=== PATIENT | female | born 1980 | race Asian ===

== ENCOUNTER 2019-01-31 18:16 | Emergency (ER) | payer OTHER ==
[~2019-01-31] VITALS: Ht 154.9 cm; Wt 61.2 kg
[2019-01-31 19:06] VITALS: Ht 154.9 cm; Wt 61.2 kg
[2019-01-31 21:03] VITALS: BP 117/63
== END 2019-01-31 21:03 | disposition home or self-care (01) ==
LOC: ED 18:16
DX: S81.812A Laceration without foreign body, left lower leg, initial encounter (principal); Z98.890 Other specified postprocedural states; W11.XXXA Fall on and from ladder, initial encounter; Y93.89 Activity, other specified; Y92.89 Other specified places as the place of occurrence of the external cause; Y99.8 Other external cause status
CPT/HCPCS: 90715; J2001

== ENCOUNTER 2019-10-04 14:53 | Emergency (ER) | payer OTHER ==
[~2019-10-04] VITALS: Ht 154.9 cm; Wt 61.7 kg
[2019-10-04 15:00] VITALS: Ht 154.9 cm; Wt 61.7 kg
[2019-10-04 15:28] LABS: BASOPHIL % 0.4 % (0-2); PLATELET COUNT 331 x10^3mcL (130-400); RED CELL DISTRIBUTION WIDTH 13.5 % (11.5-14.5)
[2019-10-04 15:36] LABS: CALCIUM 8.6 mg/dL (8.5-10.1); CARBON DIOXIDE 29.1 mmol/L (21-32); CHLORIDE SERUM 105 mmol/L (98-107); CREATININE SERUM 0.8 mg/dL (0.6-1.0); GFR1 > 60 mL/min; GLUCOSE SERUM 116 mg/dL (74-106); POTASSIUM SERUM 3.5 mmol/L (3.5-5.1); SODIUM SERUM 143 mmol/L (136-145)
[2019-10-04 15:41] LABS: ALBUMIN 3.8 g/dL (3.4-5.0); ALKALINE PHOSPHATASE 48 U/L (46-116); ALT/SGPT 16 U/L (14-59); AST/SGOT 10 U/L (15-37); BILIRUBIN TOTAL 0.3 mg/dL (0.20-1.00); TOTAL PROTEIN, SERUM 7.3 g/dL (6.4-8.2)
[2019-10-04 16:44] LABS: urine erythrocyte NEGATIVE (NEGATIVE)
[2019-10-04 16:51] LABS: microscopic required? YES
[2019-10-04 17:55] VITALS: BP 118/57
== END 2019-10-04 17:55 | disposition home or self-care (01) ==
LOC: ED 14:53
PROVIDERS: Emergency Medicine
DX: N83.209 Unspecified ovarian cyst, unspecified side (principal); D72.829 Elevated white blood cell count, unspecified; Z98.890 Other specified postprocedural states
CPT/HCPCS: 36415; J1885

== ENCOUNTER 2021-01-07 10:02 | Emergency (ER) | payer OTHER, SELFPAY ==
[~2021-01-07] VITALS: Ht 154.9 cm; Wt 61.2 kg
[2021-01-07 10:09] VITALS: Ht 154.9 cm; Wt 61.2 kg
[2021-01-07 12:04] LABS: BASOPHIL % 0.3 % (0.2-1.3); PLATELET COUNT 208 x10^3mcL (179-408); RED CELL DISTRIBUTION WIDTH 13.4 % (12.3-17.7)
[2021-01-07 12:10] LABS: UA SPECIFIC GRAVITY 1.025 (1.005-1.035); microscopic required? YES; urine erythrocyte 3+ (NEGATIVE)
[2021-01-07 12:38] LABS: CALCIUM 9.2 mg/dL (8.5-10.1); CARBON DIOXIDE 23.2 mmol/L (21-32); CREATININE SERUM 1.8 mg/dL (0.6-1.0); POTASSIUM SERUM 3.2 mmol/L (3.5-5.1)
[2021-01-07 12:43] LABS: ALBUMIN 3.2 g/dL (3.4-5.0); BILIRUBIN TOTAL 0.47 mg/dL (0.20-1.00); TOTAL PROTEIN, SERUM 8.3 g/dL (6.4-8.2)
[2021-01-07 14:36] VITALS: BP 91/53
== END 2021-01-07 14:36 | disposition home or self-care (01) ==
LOC: ED 10:02
PROVIDERS: Emergency Medicine
DX: N12 Tubulo-interstitial nephritis, not specified as acute or chronic (principal); Z98.890 Other specified postprocedural states
CPT/HCPCS: J0696; J1885; J2405; J7030; J7060